=== PATIENT | female | born 1985 | race Caucasian/White ===

== ENCOUNTER 2018-02-02 11:51 | Emergency (ER) | payer MEDICAID ==
[~2018-02-02] VITALS: Ht 149.9 cm; Wt 54.4 kg
[2018-02-02 23:01] LABS: BASOPHILS % 0.4 % (0.0-2.0); EOSINOPHILS % 2.8 % (0.0-5.0); HEMATOCRIT. 41.5 % (36.0-48.0); HEMOGLOBIN. 14.5 g/dL (12.0-16.0); LYMPHOCYTES % 29.4 % (20.0-50.0); MEAN CORPUSCULAR HEMOGLOBIN 33.1 pg (28.0-32.0); MEAN CORPUSCULAR VOLUME 95.1 fL (81.0-99.0); MEAN PLATELET VOLUME 10.3 fl (7.4-10.4); MONOCYTES % 8.1 % (2.0-8.0); NEUTROPHILS % 59.3 % (40.0-76.0); PLATELET 186 x1000/uL (130-400); RED BLOOD CELL COUNT 4.36 mill/uL (4.2-5.4); RED CELL DISTRIBUTION WIDTH 13.1 % (11.6-14.6)
[2018-02-02 23:06] LABS: CHLORIDE 110 mEq/L (98-107)
[2018-02-02 23:08] LABS: HCG SCREEN POSITIVE
[2018-02-02 23:18] LABS: B-HCG QUANTITATIVE 364 mIU/mL (<3)
[2018-02-03 00:51] LABS: CLARITY URINE CLOUDY (CLEAR); COLOR URINE YELLOW (YELLOW); KETONES URINE NEGATIVE (NEGATIVE); LEUKOCYTE ESTERASE URINE NEGATIVE (NEGATIVE); NITRITE URINE NEGATIVE (NEGATIVE); OCCULT BLOOD URINE 3+ (NEGATIVE); PROTEIN URINE NEGATIVE (NEGATIVE); SPECIFIC GRAVITY URINE 1.022 (1.005-1.030); UROBILINOGEN URINE 0.2 E.U./dL (0.2-1.0)
[2018-02-03 01:28] VITALS: BP 130/69
== END 2018-02-03 02:01 | disposition home or self-care (01) ==
LOC: ER 15:15
DX: O46.91 Antepartum hemorrhage, unspecified, first trimester (principal); O99.331 Smoking (tobacco) complicating pregnancy, first trimester; F17.290 Nicotine dependence, other tobacco product, uncomplicated; Z3A.08 8 weeks gestation of pregnancy; Z98.890 Other specified postprocedural states
CPT/HCPCS: 36415; 76801; 81025; 84702; 84703; 86850; 86900; 99284

== ENCOUNTER 2018-06-23 00:56 | Emergency (ER) | payer MEDICAID ==
[~2018-06-23] VITALS: Ht 149.9 cm; Wt 64.0 kg
[2018-06-23 04:18] LABS: BASOPHILS % 0.3 % (0.0-2.0); EOSINOPHILS % 0.5 % (0.0-5.0); HEMATOCRIT. 44.2 % (36.0-48.0); HEMOGLOBIN. 15.2 g/dL (12.0-16.0); LYMPHOCYTES % 13.1 % (20.0-50.0); MEAN CORPUSCULAR HEMOGLOBIN 31.8 pg (28.0-32.0); MEAN CORPUSCULAR VOLUME 92.5 fL (81.0-99.0); MEAN PLATELET VOLUME 9.3 fl (7.4-10.4); NEUTROPHILS % 80.1 % (40.0-76.0); PLATELET 177 x1000/uL (130-400); RED BLOOD CELL COUNT 4.78 mill/uL (4.2-5.4); RED CELL DISTRIBUTION WIDTH 13.3 % (11.6-14.6)
[2018-06-23 04:25] LABS: CHLORIDE 106 mEq/L (98-107)
[2018-06-23 06:12] VITALS: BP 111/64
== END 2018-06-23 06:14 | disposition home or self-care (01) ==
LOC: ER 00:56
DX: R07.89 Other chest pain (principal); I10 Essential (primary) hypertension; R06.02 Shortness of breath; F17.210 Nicotine dependence, cigarettes, uncomplicated; Z98.890 Other specified postprocedural states
CPT/HCPCS: 36415; 71045; 80053; 81025; 84484; 85025; 85379; 93005; 99284; 99406; Z7610

== ENCOUNTER 2022-11-06 15:21 | Emergency (ER) | payer MEDICAID ==
[~2022-11-06] VITALS: Ht 149.9 cm; Wt 56.7 kg
[2022-11-06 15:42] VITALS: BP 141/66; PULSE 92; RESP 16; TEMP 98.5; O2SAT 98
[2022-11-06 16:25] LABS: CLARITY URINE CLOUDY (CLEAR); COLOR URINE YELLOW (YELLOW); GLUCOSE URINE NEGATIVE (NEGATIVE); KETONES URINE NEGATIVE (NEGATIVE); LEUKOCYTE ESTERASE URINE TRACE (NEGATIVE); NITRITE URINE NEGATIVE (NEGATIVE); OCCULT BLOOD URINE NEGATIVE (NEGATIVE); PH URINE 5.5 (4.5-8.0); PROTEIN URINE NEGATIVE (NEGATIVE); SPECIFIC GRAVITY URINE 1.026 (1.005-1.030)
[2022-11-06 16:28] LABS: BACTERIA URINE 4+; SQUAMOUS EPITHELIAL CELL URINE 1+ /lpf (RARE/1+); YEAST URINE NONE SEEN
[2022-11-06] MEDS ORDERED: CEPHALEXIN 250MG CAPSULE PO NR (18:45)
[2022-11-06] MEDS ORDERED: CEPH500T MT ×5 (18:46→19:09)
[2022-11-06] MEDS ORDERED: SULF1TAB48 MT (19:08)
== END 2022-11-06 19:29 | disposition home or self-care (01) ==
LOC: ER 15:21
DX: L40.9 Psoriasis, unspecified (principal); F17.200 Nicotine dependence, unspecified, uncomplicated; F15.10 Other stimulant abuse, uncomplicated
CPT/HCPCS: 81003; 81025; 99283